=== PATIENT | female | born 1955 | race Two or more races ===

== ENCOUNTER 2025-02-13 14:18 | Emergency (ER) | payer SELFPAY ==
[~2025-02-13] VITALS: Ht 165.1 cm; Wt 59.0 kg
[2025-02-13] MEDS ORDERED: IBUP-1455 PO (15:53)
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
[2025-02-13 16:19] VITALS: BP 147/88; PULSE 77; RESP 18; TEMP 97.7
[2025-02-13 16:20] VITALS: O2SAT 99
== END 2025-02-13 17:29 | disposition home or self-care (01) ==
LOC: EDBD 14:18 → ER 14:18
DX: T14.8XXA Other injury of unspecified body region, initial encounter (principal); M54.12 Radiculopathy, cervical region; X58.XXXA Exposure to other specified factors, initial encounter; Y93.89 Activity, other specified; Y92.89 Other specified places as the place of occurrence of the external cause; Y99.8 Other external cause status